=== PATIENT | female | born 1995 | race Caucasian/White ===

== ENCOUNTER → 2016-12-25 | Outpatient (CLI) | payer BC ==
[~2016-12-25] MED LIST: ARMO250T PO; FLOM5CAP PO; FOLI1TAB4 PO; OXYC1TAB23 PO; POTA10TAB PO; SUMA100T2; TOPI50TA9 PO; TRAM1CAP15 PO; XYRE500S; [UNRECOGNIZED DRUG - CODE]
--- NOTE | 2016-12-25 14:13 | REP ---
Supine abdomen two views: There are no comparisons. The bowel gas pattern is normal. There is an ovoid density left upper quadrant, likely ingested a capsule. There are linear densities in the pelvis on the right, of uncertain significance. Vascular calcified atheroma is considered unlikely because of patient age. This could be intraluminal material, possibly in the cecum. The skeletal structures and soft tissues are unremarkable. Impression: Linear densities in the pelvis on the left, of uncertain significance, possibly intraluminal ingested material. Ingested medicinal capsule in the left upper quadrant. The bowel gas pattern is normal. Depending on symptomatology consider CT follow-up. Signed by Ed Fenton MD 12/25/2016 02:04 P
[2016-12-25 15:37] LABS: BASO % 0.3 % (0.0-1.0); EOS % 0.3 % (0.0-3.0); IMMATURE GRANULOCYTE % 0.3 % (0-0); LYMPH # 2.2 10^3/uL (1.5-6.5); MEAN CORPUSCULAR HEMOGLOBIN 30.1 pg (27.0-33.0); MEAN CORPUSCULAR VOLUME 91.3 fl (80.0-96.0); MONO # 0.6 10^3/uL (0.0-0.8); MONO % 7.9 % (0.0-5.0); NEUTROPHILS # 4.4 10^3/uL (1.8-7.7); NEUTROPHILS % 61.2 % (36.0-66.0); PLATELET COUNT, AUTOMATED 385 10^3/uL (150-450); RED CELL DISTRIBUTION WIDTH 12.8 % (11.5-14.5); WHITE BLOOD COUNT 7.2 10^3/uL (4.0-10.0)
[2016-12-25 15:38] LABS: ALBUMIN/GLOBULIN RATIO 1.11 (1.00-1.93); ALKALINE PHOSPHATASE 50 U/L (45-117); ALT/SGPT 16 U/L (12-78); ANION GAP 7 MEQ/L (8-16); AST/SGOT 8 U/L (7-37); BILIRUBIN,TOTAL 0.5 MG/DL (0.2-1.0); BLOOD UREA NITROGEN 13 MG/DL (7-18); CARBON DIOXIDE LEVEL 25 MEQ/L (21-32); CHLORIDE LEVEL 107 MEQ/L (98-107); CREATININE FOR GFR 1.16 MG/DL (0.55-1.02); GLOMERULAR FILTRATION RATE > 60.0 (>60); GLUCOSE, FASTING 86 MG/DL (70-105); POTASSIUM SERUM 3.9 MEQ/L (3.5-5.1); SODIUM LEVEL 139 MEQ/L (136-145); TOTAL PROTEIN 7.6 GM/DL (6.4-8.2)
== END ==
LOC: M WUC 13:42
PROVIDERS: ATTEND Physician Assistant
DX: R10.30 Lower abdominal pain, unspecified (principal)

== ENCOUNTER → 2017-10-20 | Outpatient (CLI) | payer BC | LOC: M WUC 15:24 | DX: Z20.1 Contact with and (suspected) exposure to tuberculosis (principal); Z11.1 Encounter for screening for respiratory tuberculosis | CPT/HCPCS: 71046 ==